=== PATIENT | female | born 1945 ===

== ENCOUNTER 2017-05-20 18:56 | Inpatient (IN) | payer MEDICAID, OTHER ==
--- NOTE | 2017-05-20 20:10 | ED PDOC ---
Arrival/HPI - General Chief Complaint: Dizziness/Lightheaded Time Seen by Provider: 05/20/17 19:10 Historian: Patient, Family - History of Present Illness Narrative History of Present Illness (Text): 05/20/17 20:05 The patient is a 71yo female, PMHx of cystitis as diagnosed two weeks ago, is sent to the ED by Dr. Boothe (physician at [facility]) for evaluation of bradycardia. Patient is accompanied by her children, who serve as primary historians. Children report the patient had been complaining of dizziness with associated headache and generalized discomfort for the past two weeks. Also report the patient had bilateral eye redness and itching. Currently deny any fever, nausea, vomiting, diarrhea and offer no additional medical complaints. Time/Duration: > week (2) Past Medical History - Provider Review Nursing Documentation Reviewed: Yes - Past Medical History Past Medical History: No Previous - Cardiac Hx Cardiac Disorders: No - Pulmonary Hx Respiratory Disorders: No - Neurological Hx Neurological Disorder: No - Renal Hx Renal Disorder: No - Endocrine/Metabolic Hx Endocrine Disorders: No - Musculoskeletal/Rheumatological Hx Musculoskeletal Disorders: No - Gastrointestinal Other/Comment: chronic abd pain - Psychiatric Hx Substance Use: No Family/Social History - Physician Review Nursing Documentation Reviewed: Yes Smoking Status: Never Smoked Hx Alcohol Use: No Hx Substance Use: No Allergies/Home Meds Allergies/Adverse Reactions: Allergies No Known Allergies Allergy (Unverified 04/20/17 16:53) Home Medications: Home Meds Medication Instructions Recorded Confirmed Diclofenac 50 mg PO BID 04/20/17 05/20/17 Mirabegron [Myrbetriq] 50 mg PO DAILY 04/20/17 05/20/17 Oxybutynin [Ditropan Tab] 5 mg PO Q12 04/20/17 05/20/17 Hydrocodone/Ibuprofen 1 tab PO Q4H PRN 05/20/17 05/20/17 [Hydrocodone-Ibuprofen 7.5-200] Review of Systems - Physician Review All systems were reviewed & negative as marked: Yes - Review of Systems Constitutional: Other (generalized malaise) Eyes: Other (redness and itching to bilateral eyes) Cardiovascular: Other (bradycardia) Gastrointestinal: Abdominal Pain Neurological: Headache, Dizziness Physical Exam Vital Signs Temp Pulse Resp BP Pulse Ox 05/20/17 22:50 98.0 F 44 L 20 165/71 H 98 07/13/17 20:01 98.1 F 48 L 15 130/67 97 05/20/17 19:02 97.8 F 52 L 18 122/54 L 99 Temperature: Afebrile Pulse: Bradycardic Respiratory Rate: Normal Appearance: Positive for: Well-Appearing, Non-Toxic, Comfortable Mental Status: Positive for: Alert and Oriented X 3 - Systems Exam Head: Present: Atraumatic, Normocephalic Pupils: Present: PERRL Extroacular Muscles: Present: EOMI Conjunctiva: Present: Normal Mouth: Present: Moist Mucous Membranes Neck: Present: Normal Range of Motion Respiratory/Chest: Present: Clear to Auscultation, Good Air Exchange. No: Respiratory Distress, Accessory Muscle Use Cardiovascular: Present: Bradycardic. No: Murmurs Abdomen: Present: Tenderness (diffuse abdominal tenderness). No: Distention Upper Extremity: Present: Normal Inspection. No: Cyanosis, Edema Lower Extremity: Present: Edema (1+ pitting edema b/l) Neurological: Present: GCS=15, CN II-XII Intact, Speech Normal Skin: Present: Warm, Dry, Normal Color. No: Rashes Psychiatric: Present: Alert, Oriented x 3, Normal Insight, Normal Concentration Medical Decision Making ED Course and Treatment: 05/20/17 20:16 Impression: Bradycardia, dizziness Plan: -- CT Head -- Labs -- Chest x-ray Reassess Scribe Attestation: Documented by Rosa Padilla acting as a scribe for Kassidy Babin MD. Provider Attestation: All medical record entries made by the Scribe were at my direction and personally dictated by me. I have reviewed the chart and agree that the record accurately reflects my personal performance of the history, physical exam, medical decision making, and the department course for this patient. I have also personally directed, reviewed, and agree with the discharge instructions and disposition. 05/20/17 21:33 CT Head FINDINGS: Brain: Ventricles are normal in size and configuration. There is no midline shift. There are no intraaxial or extra-axial mass lesions or areas of hemorrhage. There are no abnormal fluid collections. Barnes-white differentiation is maintained. Ventricles: See above. Bones: Cranial vault is intact. Soft tissues: unremarkable Sinuses: There is no acute sinusitis. Ears and mastoids: Middle ears and mastoids are unremarkable Orbits: Orbital contents are unremarkable. IMPRESSION: No acute intracranial abnormality 05/20/17 22:00 Labs indicate low potassium levels. Gave KCl 20 meq PO once Patient to be admitted to telemetry under hospitalist for a full cardiac workup. 05/20/17 22:08 Case discussed with hospitalist rn infusion who is aware. - Lab Interpretations Lab Results: 05/20/17 20:00 05/20/17 20:00 Lab Results 05/20/17 20:00: Sodium 141, Potassium 3.3 L, Chloride 107, Carbon Dioxide 25, Anion Gap 12, BUN 11, Creatinine 0.6 L, Est GFR ( Amer) > 60, Est GFR ( Non-Af Amer) > 60, Random Glucose 104, Calcium 8.9, Total Bilirubin 1.5 H, AST 21, ALT 35, Alkaline Phosphatase 59, Troponin I < 0.0120, Total Protein 7.0, Albumin 4.0, Globulin 3.0, Albumin/Globulin Ratio 1.3 05/20/17 20:00: WBC 4.2 L, RBC 4.09, Hgb 11.8 L, Hct 35.9, MCV 87.8, MCH 28.9, MCHC 32.9 L, RDW 13.3, Plt Count 197, MPV 8.8, Neut % (Auto) 47.2 L, Lymph % ( Auto) 44.2 H, [place] % (Auto) 7.3, Eos % (Auto) 0.9, Baso % (Auto) 0.4, Neut # 2.0 , Lymph # 1.8, [place] # 0.3, Eos # 0.0, Baso # 0.0 05/20/17 19:56: POC Glucose (mg/dL) 108 - RAD Interpretation Radiology Orders: 05/20/17 20:07 HEAD W/O CONTRAST [CT] Stat CHEST PORTABLE [RAD] Stat - EKG Interpretation EKG Interpretation (Text): EKG: sinus bradycardia occaisonal PVC Rate of 59 BPM Interpreted by ED Physician: Yes - Medication Orders Current Medication Orders: Discontinued Medications Enoxaparin Sodium (Lovenox) 40 mg SC DAILY ISAIAS PRN Reason: Protocol Last Admin: 05/21/17 08:54 Dose: 40 mg Home Med (Mirabegron [Myrbetriq]) 50 mg PO DAILY ISAIAS Ibuprofen (Motrin Tab) 400 mg PO Q6 PRN PRN Reason: Pain, moderate (4-7) Last Admin: 05/21/17 05:55 Dose: 400 mg Re-Assess: MAR Pain/Vital Signs Reassess Document 05/21/17 06:55 ARIANNA (Rec: 05/21/17 07:47 ARIANNA [id number]) Sleep Is patient sleeping during reassessment? No Pain Reassessment Pain not relieved and LIP/MD was No notified Pain Scale Used Numeric Pain Scale Level 0 Oxybutynin Chloride (Ditropan Tab) 5 mg PO Q12 ISAIAS Last Admin: 05/21/17 08:54 Dose: 5 mg Potassium Chloride (K-Dur 20 Meq Er Tab) 20 meq PO ONCE ONE Stop: 05/20/17 22:07 Last Admin: 05/20/17 22:43 Dose: 20 meq Potassium Chloride (K-Dur 20 Meq Er Tab) Confirm Administered Dose 20 meq PO .STK-MED ONE Stop: 05/20/17 22:17 Disposition/Present on Arrival - Present on Arrival Any Indicators Present on Arrival: No History of DVT/PE: No History of Uncontrolled Diabetes: No Urinary Catheter: No History of Decub. Ulcer: No - Disposition Have Diagnosis and Disposition been Completed?: Yes Diagnosis: Dizziness of unknown cause Disposition: HOSPITALIZED Disposition Time: 21:00 Patient Plan: Telemetry Condition: STABLE NIHSS Stroke Scale - Date/Time Evaluation Performed Date Performed: 05/20/17
[2017-05-20 20:33] LABS: BASO % 0.4 % (0.0-2.0); EOS % 0.9 % (0.0-4.0); HEMOGLOBIN 11.8 g/dL (12.0-16.0); LYMPH # 1.8 K/uL (1.0-4.3); LYMPH % 44.2 % (20.0-40.0); MEAN CELL VOLUME 87.8 fl (81.0-99.0); MEAN CORPUSCULAR HEMOGLOBIN 28.9 pg (27.0-31.0); MEAN CORPUSCULAR HGB CONC 32.9 g/dL (33.0-37.0); MEAN PLATELET VOLUME 8.8 fl (7.2-11.7); MONO # 0.3 K/uL (0.0-0.8); MONO % 7.3 % (0.0-10.0); NEUT % 47.2 % (50.0-75.0); NRBC % 0.1 % (0.0-0.0); RBC 4.09 Mil/uL (3.80-5.20); RED CELL DISTRIBUTION WIDTH 13.3 % (11.5-14.5); WHITE BLOOD COUNT 4.2 K/uL (4.8-10.8)
[2017-05-20 20:36] LABS: ALB/GLOB RATIO 1.3 (1.0-2.1); ALT/SGPT 35 U/L (9-52); AST/SGOT 21 U/L (14-36); BLOOD UREA NITROGEN 11 mg/dl (7-17); CALCIUM 8.9 mg/dL (8.4-10.2); GFR AFRICAN-AMERICAN > 60; GFR NON-AFRICAN AMERICAN > 60
--- NOTE | 2017-05-20 20:59 | CT ---
EXAM: CT Head Without Intravenous Contrast CLINICAL HISTORY: 71 years old, female; Pain; Headache; Headache not specified TECHNIQUE: Axial computed tomography images of the head/brain without intravenous contrast. This CT exam was performed using one or more of the following dose reduction techniques: automated exposure control, adjustment of the mA and/or kV according to patient size, and/or use of iterative reconstruction technique. Coronal and sagittal reformatted images were created and reviewed. EXAM DATE/TIME: 05/20/2017 8:07 PM COMPARISON: There are no prior studies for comparison. FINDINGS: Brain: Ventricles are normal in size and configuration. There is no midline shift. There are no intra-axial or extra-axial mass lesions or areas of hemorrhage. There are no abnormal fluid collections. Barnes-white differentiation is maintained. Ventricles: See above. Bones: Cranial vault is intact. Soft tissues: unremarkable Sinuses: There is no acute sinusitis. Ears and mastoids: Middle ears and mastoids are unremarkable Orbits: Orbital contents are unremarkable. IMPRESSION: No acute intracranial abnormality
[2017-05-20] MEDS ORDERED: Potassium Chloride 20 mEq ER Tab PO ONE ×2 (22:06→22:16)
[2017-05-20 22:57] VITALS: O2SAT 98
--- NOTE | 2017-05-20 23:16 | CP.PCM.HP ---
History of Present Illness - History of Present Illness History of Present Illness: cc: sent by physician for bradycardia HPI: 71 year old female no known past medical history presents from [facility] Dr. Boothe for evaluation of bradycardia. Patient states she has been feeling dizzy and tired for about one day, moderate, associated with a headache and mild shortness of breath one episode this morning. Patient was also being treated for cystitis for a month? and is on an unknown antibiotic. Son also states that she has been taking his pain medications (uncertain which one) for about a week. Currently patient only has mild dizziness and complains of a mild headache that comes and goes. She also complains of eye redness upon starting the unknown antibiotic. Patient family has agreed to bring it from home. Pt bradycardic between 44-57. EKG sinus edvin with PVC, no blocks appreciated. Maintain on telemetry. Cardiology consult. ROS: per hpi all other systems reviewed and negative by me PMH: denies PSH: denies FH: denies SH: denies tobacco, ETOH, IVDU Meds: as below Allergies: NKDA Vitals: reviewed and currently stable Temp Pulse Resp BP Pulse Ox 98.0 F 44 L 20 165/71 H 98 05/20/17 22:50 05/20/17 22:50 05/20/17 22:50 05/20/17 22:50 05/20/17 22:50 Exam: GEN: WDWN, alert, cooperative HEENT: NCAT, PERRL, EOMI, mild erythema around eyes NECK: supple, no JVD, no lymphadenopathy CARDIAC: +S1S2 Reg rhythm, bradycardic LUNG: CTAB No WRR ABD: SOFT NT ND BSX4 NO MASSES NO HSM EXT: +pedal pulses, equal strength NEURO: AAOx3 SKIN warm, dry PSYCH normal mood, normal affect Labs: 05/20/17 05/20/17 20:00 20:00 WBC 4.2 L RBC 4.09 Hgb 11.8 L Hct 35.9 MCV 87.8 MCH 28.9 MCHC 32.9 L RDW 13.3 Plt Count 197 MPV 8.8 Neut % (Auto) 47.2 L Lymph % (Auto) 44.2 H [place] % (Auto) 7.3 Eos % (Auto) 0.9 Baso % (Auto) 0.4 Neut # 2.0 Lymph # 1.8 [place] # 0.3 Eos # 0.0 Baso # 0.0 Sodium 141 Potassium 3.3 L Chloride 107 Carbon Dioxide 25 Anion Gap 12 BUN 11 Creatinine 0.6 L Est GFR ( Amer) > 60 Est GFR (Non-Af Amer) > 60 Random Glucose 104 Calcium 8.9 Total Bilirubin 1.5 H AST 21 ALT 35 Alkaline Phosphatase 59 Troponin I < 0.0120 Total Protein 7.0 Albumin 4.0 Globulin 3.0 Albumin/Globulin Ratio 1.3 Rads: head CT neg Assessment and Plan: 71 year old female no known past medical history presents from [facility] Dr. Boothe for evaluation of bradycardia. Patient states she has been feeling dizzy and tired for about one day, moderate, associated with a headache and mild shortness of breath one episode this morning. Patient was also being treated for cystitis for a month? and is on an unknown antibiotic. Son also states that she has been taking his pain medications (uncertain which one) for about a week. Currently patient only a mild headache that comes and goes. She also complains of eye redness and itchiness, possibly upon starting the unknown antibiotic. Patient family has agreed to bring it from home. Pt bradycardic between 44-57. EKG sinus edvin with PVC, no blocks appreciated. Maintain on telemetry. Cardiology consult. Bradycardia monitor on telemetry, HD stable per family patient had normal heart rate when she went to see her urologist one month ago? evaluate for sick sinus? hypothyroid? trend cardiac enzymes? no obvious infection currently asymptomatic, mild headache Cardiology consult Dr. Mckenzie hold all meds except oxybutinin Eye Erythema monitor wait for any offending agent to wear off VTE ppx SCDs Present on Admission - Present on Admission Any Indicators Present on Admission: No Past Patient History - Past Social History Smoking Status: Never Smoked - CARDIAC Hx Cardiac Disorders: No - PULMONARY Hx Respiratory Disorders: No - NEUROLOGICAL Hx Neurological Disorder: No - RENAL Hx Chronic Kidney Disease: No - ENDOCRINE/METABOLIC Hx Endocrine Disorders: No - MUSCULOSKELETAL/RHEUMATOLOGICAL Hx Musculoskeletal Disorders: No - GASTROINTESTINAL Other/Comment: chronic abd pain - PSYCHIATRIC Hx Substance Use: No Meds Allergies/Adverse Reactions: Allergies Allergy/AdvReac Type Severity Reaction Status Date / Time No Known Allergies Allergy Unverified 04/20/17 16:53 Results - Vital Signs Recent Vital Signs: Last Vital Signs Temp 98.0 F 05/20/17 22:50 Pulse 44 L 05/20/17 22:50 Resp 20 05/20/17 22:50 BP 165/71 H 05/20/17 22:50 Pulse Ox 98 05/20/17 22:50 - Labs Result Diagrams: 05/20/17 20:00 05/20/17 20:00
[2017-05-21 04:57] LABS: HEMOGLOBIN 11.4 g/dL (12.0-16.0); MEAN CELL VOLUME 86.7 fl (81.0-99.0); MEAN CORPUSCULAR HEMOGLOBIN 28.8 pg (27.0-31.0); MEAN CORPUSCULAR HGB CONC 33.3 g/dL (33.0-37.0); RBC 3.95 Mil/uL (3.80-5.20); RED CELL DISTRIBUTION WIDTH 13.6 % (11.5-14.5); WHITE BLOOD COUNT 4.2 K/uL (4.8-10.8)
[2017-05-21 05:05] LABS: BLOOD UREA NITROGEN 13 mg/dl (7-17); CALCIUM 8.6 mg/dL (8.4-10.2); GFR AFRICAN-AMERICAN > 60; GFR NON-AFRICAN AMERICAN > 60
--- NOTE | 2017-05-21 08:13 | CP.PCM.CON ---
History of Present Illness - History of Present Illness History of Present Illness: 71 y/o female admitted with fatigue and dizziness Cardiology consult called for Bradycardia The patient complains of dizzy spells on and off for the past 2-3 days. Social complains of itchiness of the face. There was no chest pain or shortness of breath. No Palpitations and no syncope. Upon sitting up and heart rate does increase to a normal level Her HR is responsive to exertion HR: 40 - 56 BPM Telemetry: No pauses and no AV blocks EKG: sinus bradycardia @ 59 BPM Troponin: neg Past Patient History - Past Medical History & Family History Past Medical History?: Yes - Past Social History Smoking Status: Never Smoked - CARDIAC Hx Cardiac Disorders: No - PULMONARY Hx Respiratory Disorders: No - NEUROLOGICAL Hx Neurological Disorder: No - RENAL Hx Chronic Kidney Disease: No - ENDOCRINE/METABOLIC Hx Endocrine Disorders: No - MUSCULOSKELETAL/RHEUMATOLOGICAL Hx Falls: No - GASTROINTESTINAL Other/Comment: chronic abd pain - PSYCHIATRIC Hx Substance Use: No Meds Allergies/Adverse Reactions: Allergies Allergy/AdvReac Type Severity Reaction Status Date / Time No Known Allergies Allergy Unverified 04/20/17 16:53 - Medications Medications: Current Medications Enoxaparin Sodium (Lovenox) 40 mg SC DAILY ISAIAS PRN Reason: Protocol Home Med (Mirabegron [Myrbetriq]) 50 mg PO DAILY ISAIAS Ibuprofen (Motrin Tab) 400 mg PO Q6 PRN PRN Reason: Pain, moderate (4-7) Last Admin: 05/21/17 05:55 Dose: 400 mg Oxybutynin Chloride (Ditropan Tab) 5 mg PO Q12 ISAIAS Physical Exam - Head Exam Head Exam: NORMAL INSPECTION - Eye Exam Eye Exam: Normal appearance - ENT Exam ENT Exam: Normal Exam - Neck Exam Neck exam: Positive for: Normal Inspection - Respiratory Exam Respiratory Exam: NORMAL BREATHING PATTERN - Cardiovascular Exam Cardiovascular Exam: REGULAR RHYTHM Results - Vital Signs Recent Vital Signs: Last Vital Signs Temp 97.9 F 05/21/17 04:16 Pulse 38 L 05/21/17 04:16 Resp 16 05/21/17 04:16 BP 127/48 L 05/21/17 04:16 Pulse Ox 98 05/21/17 04:16 - Labs Result Diagrams: 05/21/17 04:52 05/21/17 04:52 Labs: Laboratory Results - last 24 hr 05/21/17 05/21/17 04:52 04:52 WBC 4.2 L RBC 3.95 Hgb 11.4 L Hct 34.2 MCV 86.7 MCH 28.8 MCHC 33.3 RDW 13.6 Plt Count 188 Sodium 142 Potassium 3.7 Chloride 108 H Carbon Dioxide 26 Anion Gap 12 BUN 13 Creatinine 0.5 L Est GFR ( Amer) > 60 Est GFR (Non-Af Amer) > 60 Random Glucose 94 Calcium 8.6 Troponin I < 0.0120 TSH 3rd Generation 0.86 Assessment & Plan (1) Dizziness Assessment and Plan: The patient's complaint of dizziness does not appear to be Secondary to sinus bradycardia Heart rate responds appropriately when she gets up and moves around Status: Acute
[2017-05-21 08:18] VITALS: BP 128/62; RESP 18; TEMP 97.7
[2017-05-21] MEDS ORDERED: Enoxaparin 40 mg Syringe SC SCH (09:00)
--- NOTE | 2017-05-21 10:03 | CARD ---
APPROVED REPORT EKG Measurement Heart [id number] <Conclusion> Sinus bradycardia with occasional premature ventricular complexes Low voltage QRS Inferior infarct, age undetermined Abnormal ECG
--- NOTE | 2017-05-21 10:46 | RAD ---
HISTORY: dizziness COMPARISON: None FINDINGS: LUNGS: The lungs are well inflated and clear. PLEURA: No significant pleural effusion identified, no pneumothorax apparent. CARDIOVASCULAR: Normal. OSSEOUS STRUCTURES: No significant abnormalities. VISUALIZED UPPER ABDOMEN: Normal. OTHER FINDINGS: None. IMPRESSION: No active pulmonary disease.
[2017-05-21 12:15] VITALS: PULSE 38
[2017-05-21 14:13] LABS: SQUAMOUS EPITHIAL 26 /hpf (0-5); URINE BILIRUBIN NEGATIVE (NEGATIVE); URINE BLOOD SMALL (NEGATIVE); URINE CLARITY CLOUDY (Clear); URINE COLOR YELLOW (YELLOW); URINE GLUCOSE (UA) NEG (Normal); URINE LEUKOCYTE ESTERASE LARGE Leu/uL (Negative); URINE NITRATE NEGATIVE (NEGATIVE); URINE PROTEIN NEGATIVE (NEGATIVE); URINE UROBILINOGEN 0.2-1.0 mg/dL (0.2-1.0)
--- NOTE | 2017-05-21 15:15 | CP.PCM.DIS ---
Provider - Provider Date of Admission: 05/20/17 22:07 Attending physician: Karin Ordaz DO Primary care physician: Dr Boothe Consults: Dr Mckenzie, taxi proprietor Time Spent in preparation of Discharge (in minutes): 35 Diagnosis - Discharge Diagnosis (1) Bradycardia Status: Acute Comment: patient discharged in stable condition. seen by taxi proprietor, Dr Mckenzie, and cleared patient for discharge (2) Cystitis Status: Acute Comment: Cipro 500mg PO BID for 7 days. Munger intake of fluid. follow up with Dr Boothe at [facility] Course - Lab Results Lab Results: Most Recent Lab Values WBC 4.2 K/uL (4.8-10.8) L 05/21/17 04:52 RBC 3.95 Mil/uL (3.80-5.20) 05/21/17 04:52 Hgb 11.4 g/dL (12.0-16.0) L 05/21/17 04:52 Hct 34.2 % (34.0-47.0) 05/21/17 04:52 MCV 86.7 fl (81.0-99.0) 05/21/17 04:52 MCH 28.8 pg (27.0-31.0) 05/21/17 04:52 MCHC 33.3 g/dL (33.0-37.0) 05/21/17 04:52 RDW 13.6 % (11.5-14.5) 05/21/17 04:52 Plt Count 188 K/uL (130-400) 05/21/17 04:52 MPV 8.8 fl (7.2-11.7) 05/20/17 20:00 Neut % (Auto) 47.2 % (50.0-75.0) L 05/20/17 20:00 Lymph % (Auto) 44.2 % (20.0-40.0) H 05/20/17 20:00 [place] % (Auto) 7.3 % (0.0-10.0) 05/20/17 20:00 Eos % (Auto) 0.9 % (0.0-4.0) 05/20/17 20:00 Baso % (Auto) 0.4 % (0.0-2.0) 05/20/17 20:00 Neut # 2.0 K/uL (1.8-7.0) 05/20/17 20:00 Lymph # 1.8 K/uL (1.0-4.3) 05/20/17 20:00 [place] # 0.3 K/uL (0.0-0.8) 05/20/17 20:00 Eos # 0.0 K/uL (0.0-0.7) 05/20/17 20:00 Baso # 0.0 K/uL (0.0-0.2) 05/20/17 20:00 Sodium 142 mmol/l (132-148) 05/21/17 04:52 Potassium 3.7 MMOL/L (3.6-5.0) 05/21/17 04:52 Chloride 108 mmol/L (98-107) H 05/21/17 04:52 Carbon Dioxide 26 mmol/L (22-30) 05/21/17 04:52 Anion Gap 12 (10-20) 05/21/17 04:52 BUN 13 mg/dl (7-17) 05/21/17 04:52 Creatinine 0.5 mg/dL (0.7-1.2) L 05/21/17 04:52 Est GFR ( Amer) > 60 05/21/17 04:52 Est GFR (Non-Af Amer) > 60 05/21/17 04:52 POC Glucose (mg/dL) 108 mg/dL (65-110) 05/20/17 19:56 Random Glucose 94 mg/dL (65-105) 05/21/17 04:52 Calcium 8.6 mg/dL (8.4-10.2) 05/21/17 04:52 Total Bilirubin 1.5 mg/dl (0.2-1.3) H 05/20/17 20:00 AST 21 U/L (14-36) 05/20/17 20:00 ALT 35 U/L (9-52) 05/20/17 20:00 Alkaline Phosphatase 59 U/L (38-126) 05/20/17 20:00 Troponin I < 0.0120 ng/mL (0.00-0.120) 05/21/17 12:00 Total Protein 7.0 G/DL (6.3-8.2) 05/20/17 20:00 Albumin 4.0 g/dL (3.5-5.0) 05/20/17 20:00 Globulin 3.0 gm/dL (2.2-3.9) 05/20/17 20:00 Albumin/Globulin Ratio 1.3 (1.0-2.1) 05/20/17 20:00 TSH 3rd Generation 0.86 mIU/ML (0.46-4.68) 05/21/17 04:52 Urine Color Yellow (YELLOW) 05/21/17 13:00 Urine Clarity Cloudy (Clear) 05/21/17 13:00 Urine pH 6.0 (5.0-8.0) 05/21/17 13:00 Ur Specific [place] 1.010 (1.003-1.030) 05/21/17 13:00 Urine Protein Negative mg/dL (NEGATIVE) 05/21/17 13:00 Urine Glucose (UA) Neg mg/dL (Normal) 05/21/17 13:00 Urine Ketones Negative mg/dL (NEGATIVE) 05/21/17 13:00 Urine Blood Small (NEGATIVE) 05/21/17 13:00 Urine Nitrate Negative (NEGATIVE) 05/21/17 13:00 Urine Bilirubin Negative (NEGATIVE) 05/21/17 13:00 Urine Urobilinogen 0.2-1.0 mg/dL (0.2-1.0) 05/21/17 13:00 Ur Leukocyte Esterase Large [place]/uL (Negative) 05/21/17 13:00 Urine RBC (Auto) 7 /hpf (0-3) H 05/21/17 13:00 Urine Microscopic WBC 137 /hpf (0-5) H 05/21/17 13:00 Ur Squamous Epith Cells 26 /hpf (0-5) H 05/21/17 13:00 - Hospital Course Hospital Course: 71 yo female with no significant PMH brought in because of feeling dizzy and tired. Also diagnosed with cystitis at [place] and was started on antibiotics. It was not clear whether patient took the antibiotics. She was sent here because of sinus bradycardia. Patient was admitted in telemetry and was monitored. She denied chest pain or SOB. Heart rate gets up when she move around. Serial Troponins were negative. Dr Mckenzie was consulted and deduced that patient was stable in spite of bradycardia. She continued to complain of dysuria which may be causing vagal stimulation. Patient discharge in stable condition and advised to continue Cipro 500mg BID for 7 days. To follow with [facility] after a week. Discharge Exam - Head Exam Head Exam: NORMAL INSPECTION - Eye Exam Eye Exam: absent: Scleral icterus - ENT Exam ENT Exam: Mucous Membranes Moist - Respiratory Exam Respiratory Exam: NORMAL BREATHING PATTERN. absent: Wheezes, Respiratory Distress - Cardiovascular Exam Cardiovascular Exam: Bradycardia, +S1, +S2 - GI/Abdominal Exam GI & Abdominal Exam: Soft. absent: Tenderness - Rectal Exam Rectal Exam: Deferred - Neurological Exam Neurological exam: Alert, Oriented x3 - Psychiatric Exam Psychiatric exam: Normal Affect Discharge Plan - Discharge Medications Prescriptions: Ciprofloxacin [Cipro] 500 mg PO BID #14 tab - Follow Up Plan Condition: GOOD Disposition: HOME/ ROUTINE
--- NOTE | 2017-05-22 10:15 | CARD ---
APPROVED REPORT EXAM: Two-dimensional and M-mode echocardiogram with Doppler and color Doppler. Other Information Quality : GoodRhythm : Bradycardia INDICATION Abnormal EKG/Arrhythmia 2D DIMENSIONS IVSd0.99 (0.7-1.1cm)LVDd4.90 (3.9-5.9cm) LVOT Diameter2.15 (1.8-2.4cm)PWd0.64 (0.7-1.1cm) IVSs1.64 (0.8-1.2cm)LVDs2.45 (2.5-4.0cm) FS (%) 49.9 %PWs1.16 (0.8-1.2cm) M-Mode DIMENSIONS Left Atrium (MM)5.34 (2.5-4.0cm)IVSd0.91 (0.7-1.1cm) Aortic Root2.88 (2.2-3.7cm)LVDd5.97 (4.0-5.6cm) Aortic Cusp Exc.1.69 (1.5-2.0cm)PWd1.03 (0.7-1.1cm) IVSs1.69 cmFS (%) 48 % LVDs3.09 (2.0-3.8cm)PWs1.41 cm Mitral Valve MV E Aflhqhpg05.0cm/sMV DECEL [id number] A Nvhbpqif16.6cm/s MV UFD56srI/A ratio1.1MVA (PHT)2.82cm2 TDI Lateral E' Peak V10.67cm/sMedial E' Peak V8.47cm/sE/Lateral E'7.3 E/Medial E'9.2 Pulmonary Valve PV Peak Mramfsjh989.0cm/s Tricuspid Valve TR Peak Upwanras529fh/sRAP [id number] Peak Gr.23mmHg [id number] LEFT VENTRICLE The left ventricle is normal size. There is normal left ventricular wall thickness. Left ventricle systolic function is normal. The Ejection Fraction is 65-70%. There is normal LV segmental wall motion. Transmitral Doppler flow pattern is Grade I-abnormal relaxation pattern. RIGHT VENTRICLE The right ventricle is normal size. There is normal right ventricular wall thickness. The right ventricular systolic function is normal. ATRIA The left atrium is mildly dilated. The right atrium size is normal. AORTIC VALVE The aortic valve is normal in structure and function. No aortic regurgitation is present. There is no aortic valvular stenosis. MITRAL VALVE The mitral valve is normal in structure. There is no evidence of mitral valve prolapse. There is no mitral valve stenosis. Mitral regurgitation is mild. TRICUSPID VALVE The tricuspid valve is normal in structure. There is mild tricuspid regurgitation. Right ventricular systolic pressure is estimated at 34 mmHg. There is mild pulmonary hypertension. PULMONIC VALVE The pulmonary valve is normal in structure and function. There is no pulmonic valvular regurgitation. GREAT VESSELS The aortic root is normal in size. The IVC was not visualized. PERICARDIAL EFFUSION The pericardium appears normal. <Conclusion> The left ventricle is normal size. There is normal left ventricular wall thickness. There is normal LV segmental wall motion. Left ventricle systolic function is normal. The Ejection Fraction is 65-70%. Transmitral Doppler flow pattern is Grade I-abnormal relaxation pattern.
== END 2017-05-21 15:28 | disposition home or self-care (01) | DRG 310 ==
LOC: H.ER 18:56 → H.ERHOLD 22:07 → H.TEL 22:52
PROVIDERS: ADMIT Student in an Organized Health Care Education/Training Program; ATTEND Student in an Organized Health Care Education/Training Program
DX: R00.1 Bradycardia, unspecified (principal); N30.90 Cystitis, unspecified without hematuria